=== PATIENT | male | born 1955 | race Caucasian/White ===

== ENCOUNTER 2017-10-16 07:00 | Day surgery (SDC) | payer OTHER ==
[2017-10-16] MEDS ORDERED: PROPOFOL 40 ML (09:03)
== END 2017-10-16 11:15 | disposition home or self-care (01) ==
LOC: GIL 07:00
DX: Z12.11 Encounter for screening for malignant neoplasm of colon (principal); K64.8 Other hemorrhoids; K64.4 Residual hemorrhoidal skin tags
CPT/HCPCS: 45378